=== PATIENT | male | born 1995 | race Caucasian/White ===

== ENCOUNTER → 2016-08-21 | Outpatient (CLI) | payer OTHER ==
[~2016-08-21] MED LIST: NO HOME MEDICATIONS; PERCOCET 325 MG1 TA2 PO
== END ==
LOC: MC.RAD 13:55
DX: Z12.31 Encounter for screening mammogram for malignant neoplasm of breast (principal); N62 Hypertrophy of breast

== ENCOUNTER 2017-06-28 15:21 | Outpatient (RCR) | payer OTHER | END 2017-07-23 13:31 | disposition home or self-care (01) | LOC: WSOH 15:21 | DX: S76.011A Strain of muscle, fascia and tendon of right hip, initial encounter (principal); X50.0XXA Overexertion from strenuous movement or load, initial encounter; Y92.219 Unspecified school as the place of occurrence of the external cause; Y99.0 Civilian activity done for income or pay ==

== ENCOUNTER 2019-04-23 14:55 | Outpatient (RCR) | payer OTHER | END 2019-04-24 15:03 | disposition home or self-care (01) | LOC: WSOH 14:55 | DX: H93.8X1 Other specified disorders of right ear (principal); H91.91 Unspecified hearing loss, right ear; Z90.89 Acquired absence of other organs; Z98.890 Other specified postprocedural states; Y99.0 Civilian activity done for income or pay ==